=== PATIENT | male | born 1960 | race Caucasian/White ===

== ENCOUNTER 2016-07-19 13:49 | Observation (INO) | payer OTHER ==
[~2016-07-19] VITALS: Ht 162.6 cm; Wt 75.0 kg
[2016-07-19 14:34] VITALS: BP 115/60; PULSE 95; RESP 18; TEMP 98.4; O2SAT 98
[2016-07-19 14:39] VITALS: BP 114/63; PULSE 98; RESP 18; O2SAT 98
[2016-07-19 14:49] VITALS: BP 112/60; PULSE 91; RESP 18
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
[2016-07-19 15:11] LABS: AUTOMATED NEUTROPHIL # 3.2 TH/MM3 (1.8-7.7); BASOPHIL % 0.9 % (0.0-2.0); EOSINOPHIL # 0.2 TH/MM3 (0-0.4); EOSINOPHIL % 3.8 % (0.0-4.0); HEMATOCRIT 33.8 % (39.0-51.0); HEMO FLAGS DIFF FINAL; LYMPH % 23.7 % (9.0-44.0); LYMPHOCYTE # 1.3 TH/MM3 (1.0-4.8); MEAN CORPUSCULAR HEMOGLOBIN 31.3 PG (27.0-34.0); MONO % 11.5 % (0.0-8.0); NEUT % 60.1 % (16.0-70.0); PLATELET COUNT 177 TH/MM3 (150-450); RED BLOOD COUNT 3.68 MIL/MM3 (4.50-5.90); RED CELL DISTRIBUTION WIDTH 16.3 % (11.6-17.2); WHITE BLOOD COUNT 5.3 TH/MM3 (4.0-11.0)
[2016-07-19 15:20] LABS: APTT (PATIENT) 27.6 SEC (24.3-30.1); INTERNATIONAL NORMALIZED RATIO 1.1 RATIO; PROTHROMBIN TIME - PATIENT 11.7 SEC (9.8-11.6)
[2016-07-19 15:30] VITALS: BP 130/76; PULSE 80; RESP 16; O2SAT 98
--- NOTE | 2016-07-19 15:30 | RADRPT ---
EXAM DATE/TIME: 07/19/2016 14:42 [facility] COMPARISON: No previous studies available for comparison. INDICATIONS : Chest pain. MEDICAL HISTORY : Myocardial infarction. SURGICAL HISTORY : heart stents X5 ENCOUNTER: Initial ACUITY: 2 days PAIN SCORE: 3/10 LOCATION: Bilateral chest FINDINGS: A single view of the chest demonstrates the lungs to be symmetrically aerated without evidence of mas s, infiltrate or effusion. The cardiomediastinal contours are unremarkable. Osseous structures are intact. CONCLUSION: The lungs are clear. Joshua Wilder MD on July 19, 2016 at 15:28 Board Certified Radiologist. This report was verified electronically.
[2016-07-19 15:34] LABS: ANION GAP 9 MEQ/L (5-15); BICARBONATE 26.7 MEQ/L (21.0-32.0); BLOOD UREA NITROGEN 9 MG/DL (7-18); CHLORIDE 107 MEQ/L (98-107); GLOMERULAR FILTRATION RATE 103 ML/MIN (>89); MAGNESIUM 2.1 MG/DL (1.5-2.5); POTASSIUM 3.4 MEQ/L (3.5-5.1); SODIUM (NA) 143 MEQ/L (136-145)
[2016-07-19 15:39] LABS: CREATINE KINASE 165 U/L (39-308)
[2016-07-19 15:51] LABS: CKMB 1.3 NG/ML (0.5-3.6)
[2016-07-19 16:30] VITALS: BP 150/84; PULSE 76; RESP 16; O2SAT 97
[2016-07-19] MEDS ORDERED: cloNIDine HCL 0.1 MG TAB PO PRN (16:45)
[2016-07-19] MEDS ORDERED: ONDANSETRON HCL 4 MG/2 ML VIAL IV PRN (16:45)
[2016-07-19] MEDS ORDERED: ACETAMINOPHEN 500 MG CPLT PO PRN (16:45)
[2016-07-19] MEDS ORDERED: RESP: ALBUTEROL 2.5 MG/IPRATROPIUM 0.5 MG NEB (PRN) INH (16:45)
[2016-07-19] MEDS ORDERED: SODIUM CHLORIDE 0.9% FLUSH 5 ML FLUSH IVF PRN (16:45)
[2016-07-19] MEDS ORDERED: ACETAMINOPHEN/HYDROcodone 325 MG/7.5 MG TAB PO PRN (16:45)
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
[2016-07-19] MEDS ORDERED: PLAV75TA29 PO (16:56)
[2016-07-19] MEDS ORDERED: ATOR1TAB18 PO (16:56)
[2016-07-19] MEDS ORDERED: METO50TA PO (16:56)
[2016-07-19] MEDS: PANTOPRAZOLE SOD 40 MG DELAYED RELEASE TAB PO SCH (17:03)
[2016-07-19] MEDS: CLOPIDOGREL 75 MG TAB PO SCH (17:03)
[2016-07-19 18:42] LABS: CREATINE KINASE 157 U/L (39-308)
[2016-07-19 18:54] LABS: CKMB 1.1 NG/ML (0.5-3.6)
[2016-07-19 19:24] VITALS: BP 137/82; PULSE 89; RESP 18; TEMP 98.6; O2SAT 97
[2016-07-19] MEDS: SODIUM CHLORIDE 0.9% FLUSH 10 ML FLUSH IV FLUSH SCH (21:00)
[2016-07-19] MEDS ORDERED: ATORVASTATIN 80 MG TAB PO SCH (21:00)
[2016-07-19 21:38] LABS: CREATINE KINASE 134 U/L (39-308)
[2016-07-19 21:51] LABS: CKMB 0.9 NG/ML (0.5-3.6)
[2016-07-19] MEDS: METOPROLOL TARTRATE 50 MG TAB PO SCH (21:51)
[2016-07-20 00:24] VITALS: BP 140/79; PULSE 66; RESP 18; TEMP 98; O2SAT 98
[2016-07-20 03:32] VITALS: BP_SYST 136; BP_SYST 144; BP_DIAS 70; BP_DIAS 85; PULSE 60; PULSE 74; RESP 18; TEMP 97.8; O2SAT 95; O2SAT 98
[2016-07-20] MEDS: METOPROLOL TARTRATE 50 MG TAB PO SCH ×2 (07:30→10:52)
[2016-07-20 08:04] VITALS: BP 164/84; PULSE 72; RESP 20; TEMP 96.3; O2SAT 98
[2016-07-20] MEDS ORDERED: REGADENOSON INJ 0.4 MG/5 ML SYR ONE (08:58)
[2016-07-20] MEDS ORDERED: ASPIRIN 325 MG TAB PO SCH (09:00)
[2016-07-20] MEDS: SODIUM CHLORIDE 0.9% FLUSH 10 ML FLUSH IV FLUSH SCH (09:00)
[2016-07-20 09:03] VITALS: PULSE 72
--- NOTE | 2016-07-20 10:20 | RADRPT ---
EXAM DATE/TIME: 07/20/2016 08:36 [facility] COMPARISON: No previous studies available for comparison. INDICATIONS : Chest pain for 2 days. Angina. Coronary artery disease. DOSE: 26.7 mCi Tc99m Myoview at stress. 8.2 mCi Tc99m Myoview at rest. 0.4 mg Lexiscan STRESS SYMPTOMS: Shortness of breath. EJECTION FRACTION: 61% MEDICAL HISTORY : Hypertension. SURGICAL HISTORY : Coronary artery stent. ENCOUNTER: Initial ACUITY: 2 days PAIN SCALE: 3/10 LOCATION: Bilateral chest TECHNIQUE: The patient underwent pharmacologic stress with infusion of prescribed dose. Continuous ECG tracing was monitored during stress. Gated SPECT imaging was performed after stress and conventional SPECT i maging was performed at rest. The examination was performed on a SPECT/CT scanner, both attenuation and non-corrected datasets were reviewed. FINDINGS: DISTRIBUTION: The maximum perfused segment at stress is in the anteroseptal wall. PERFUSION STUDY: The pattern of perfusion at stress demonstrates reduction in perfusion to the posterior basal and inf erior wall with better perfusion during rest with some involvement of the lateral wall as well. GATED STUDY: There is intact wall motion and thickening without hypokinetic or dyskinetic segments. CONCLUSION: There is ischemia in the RCA territory and lateral wall. RISK CATEGORY: Intermediate (1-3% Annual Mortality Rate) Devin Mays MD on July 20, 2016 at 10:15 Board Certified Radiologist. This report was verified electronically.
--- NOTE | 2016-07-20 10:36 | PD.CARD.PN ---
Subjective Subjective Remarks Denies chest pain this time. Objective Vital Signs / I&O Vital Signs Date Time Temp Pulse Resp B/P Pulse Ox O2 Delivery O2 Flow Rate FiO2 07/20/16 09:03 72 07/20/16 08:04 96.3 72 20 164/84 98 07/20/16 03:32 97.8 74 18 144/85 98 07/20/16 03:14 21 07/20/16 00:24 98.0 66 18 140/79 98 07/19/16 19:24 98.6 89 18 137/82 97 07/19/16 16:30 76 16 150/84 97 Room Air 07/19/16 15:30 80 16 130/76 98 Room Air 07/19/16 14:49 91 18 112/60 07/19/16 14:39 98 Nasal Cannula 07/19/16 14:39 98 18 114/63 Nasal Cannula 07/19/16 14:39 Nasal Cannula 07/19/16 14:39 95 18 Nasal Cannula 07/19/16 14:34 98.4 95 18 115/60 98 I/O 07/19/16 07/19/16 07/19/16 07/20/16 07/20/16 07/20/16 07:00 15:00 23:00 07:00 15:00 23:00 Intake Total 50 ml Output Total 350 ml Balance -300 ml Intake Oral 50 ml Output Urine Total 350 ml Physical Exam Gen.: Patient no apparent distress. Speech is clear. Lungs: Clear to auscultate. Cardiac: Regular rate and rhythm without murmur gallop or rub. GI abdomen nontender. Bowel sounds normal. Laboratory Laboratory Tests Test 07/19/16 07/19/16 07/19/16 14:46 17:40 20:45 White Blood Count 5.3 TH/MM3 Red Blood Count 3.68 MIL/MM3 Hemoglobin 11.5 GM/DL Hematocrit 33.8 % Mean Corpuscular Volume 92.0 FL Mean Corpuscular Hemoglobin 31.3 PG Mean Corpuscular Hemoglobin 34.0 % Concent Red Cell Distribution Width 16.3 % Platelet Count 177 TH/MM3 Mean Platelet Volume 9.0 FL Neutrophils (%) (Auto) 60.1 % Lymphocytes (%) (Auto) 23.7 % Monocytes (%) (Auto) 11.5 % Eosinophils (%) (Auto) 3.8 % Basophils (%) (Auto) 0.9 % Neutrophils # (Auto) 3.2 TH/MM3 Lymphocytes # (Auto) 1.3 TH/MM3 Monocytes # (Auto) 0.6 TH/MM3 Eosinophils # (Auto) 0.2 TH/MM3 Basophils # (Auto) 0.0 TH/MM3 CBC Comment DIFF FINAL Differential Comment Prothrombin Time 11.7 SEC Prothromb Time International 1.1 RATIO Ratio Activated Partial 27.6 SEC Thromboplast Time Sodium Level 143 MEQ/L Potassium Level 3.4 MEQ/L Chloride Level 107 MEQ/L Carbon Dioxide Level 26.7 MEQ/L Anion Gap 9 MEQ/L Blood Urea Nitrogen 9 MG/DL Creatinine 0.78 MG/DL Estimat Glomerular Filtration 103 ML/MIN Rate Random Glucose 145 MG/DL Calcium Level 8.7 MG/DL Magnesium Level 2.1 MG/DL Total Creatine Kinase 165 U/L 157 U/L 134 U/L Creatine Kinase MB 1.3 NG/ML 1.1 NG/ML 0.9 NG/ML Troponin I LESS THAN 0.02 LESS THAN 0.02 LESS THAN 0.02 NG/ML NG/ML NG/ML Imaging Last 24 hours Impressions Myocardial Perfusion Scan Nuc Med 07/20/16 0000 Signed Impressions: Service Date/Time: July 08:36 - CONCLUSION: There is ischemia in the RCA territory and lateral wall. RISK CATEGORY: Intermediate (1-3%% Annual Mortality Rate) Devin Mays MD Chest X-Ray 07/19/16 1437 Signed Impressions: Service Date/Time: Tuesday, July 19, 2016 14:42 - CONCLUSION: The lungs are clear. Joshua Wilder MD Assessment and Plan Assessment and Plan * Chest pain: Denies chest pain at this time. Patient had an ischemic stress test today. He will need admission to hospitalist with consultation to cardiology for likely heart catheterization. * History of CAD: Had abnormal stress test today and will likely need cardiac catheterization. We'll also apply Nitrol ointment. * Hypertension: Continue current medication. * Hyperlipidemia: Continue current medication. * Tobacco abuse: Patient has been counseled on the importance of smoking cessation. Patient is stable at this time. He is agreeable to this plan. Jeo Miranda Jul 20, 2016 10:36
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
[2016-07-20] MEDS: PANTOPRAZOLE SOD 40 MG DELAYED RELEASE TAB PO SCH (10:52)
[2016-07-20] MEDS: CLOPIDOGREL 75 MG TAB PO SCH (10:52)
[2016-07-20] MEDS ORDERED: NITROGLYCERIN 2% OINT 1 GM PACKET TOPICAL SCH (11:00)
[2016-07-20] MEDS ORDERED: SODIUM CHLOR 0.9% 1000 ML INJ 1,000 ML IV SCH (11:00)
--- NOTE | 2016-07-20 11:18 | TR ---
Date Performed: 07/20/2016 Time Performed: 09:05:46 DOCTOR: Felix Paula DRUG LIST: CLINICAL HISTORY: ANGINA REASON FOR TEST: Angina REASON FOR ENDING: OBSERVATION: CONCLUSION: Lexiscan stress test was performed under standard four minute protocol. Radion[place] e was injected one minute prior to ending the test. No electrocardiographic abormalities were present to suggest ischemia. Nuclear imaging and interpretation are pending. COMMENTS:
--- NOTE | 2016-07-20 11:25 | EKG ---
Date Performed: 07/19/2016 Time Performed: 23:45:32 PTAGE: 55 years EKG: Sinus rhythm INDETERMINATE AXIS POSSIBLE RIGHT VENTRICULAR CONDUCTION DELAY INFERIOR MYOCARDIAL INFARCTION ABNORM AL ECG INTERPRETATION BASED ON A DEFAULT AGE OF 40 YEARS Since PREVIOUS TRACING , no significant change noted DOCTOR: Felix Paula Interpretating Date/Time 07/20/2016 11:24:22
--- NOTE | 2016-07-20 11:28 | EKG ---
Date Performed: 07/19/2016 Time Performed: 21:10:54 PTAGE: 55 years EKG: Sinus rhythm MARKED LEFT AXIS DEVIATION INCOMPLETE RIGHT BUNDLE BRANCH BLOCK ABNORMAL ECG Inferior myocardial inf arction PREVIOUS TRACING : 07/19/2016 18.34 Since previous tracing, no significant change noted DOCTOR: Felix Paula Interpretating Date/Time 07/20/2016 11:26:59
[2016-07-20 11:35] VITALS: BP 158/83; PULSE 76; RESP 20; TEMP 95.6; O2SAT 100
--- NOTE | 2016-07-20 12:23 | EKG ---
Date Performed: 07/19/2016 Time Performed: 18:34:35 PTAGE: 55 years EKG: Sinus rhythm PATTERN CONSISTENT WITH PULMONARY DISEASE POSSIBLE RIGHT VENTRICULAR CONDUCTION DELAY INFERIOR MYOCA RDIAL INFARCTION ABNORMAL ECG PREVIOUS TRACING : 07/19/2016 14.34 Since previous tracing, no significant change noted DOCTOR: Felix Paula Interpretating Date/Time 07/20/2016 12:21:27
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
--- NOTE | 2016-07-20 13:10 | EKG ---
Date Performed: 07/19/2016 Time Performed: 14:34:58 PTAGE: 55 years EKG: Sinus rhythm LOW QRS VOLTAGE IN PRECORDIAL LEADS PATTERN CONSISTENT WITH PULMONARY DISEASE POSSIBLE RIGHT VENTRIC ULAR CONDUCTION DELAY INFERIOR MYOCARDIAL INFARCTION ABNORMAL ECG NO PREVIOUS TRACING DOCTOR: Felix Paula Interpretating Date/Time 07/20/2016 13:09:02
[2016-07-20] MEDS ORDERED: HEPARIN-NS/PF INJ 500 ML ONE (13:46)
[2016-07-20] MEDS ORDERED: MIDAZOLAM HCL 2 MG/2 ML VIAL ONE (13:49)
--- NOTE | 2016-07-20 15:29 | MA ---
cc: NAY OWENS DATE: 07/20/2016. PROCEDURE PERFORMED: 1. Left heart catheterization. 2. Selective right and left coronary angiography. 3. Left ventriculogram. 4. Right common femoral artery angiography, selective. INDICATIONS FOR THE PROCEDURE: Angina. Positive stress test. History of known coronary artery disease. DESCRIPTION OF THE PROCEDURE: Consent signed. The patient was brought into the cardiac computer lab assistant in a fasting state. The right groin was prepped and draped in a sterile fashion using 1% lidocaine for local anesthesia and micropuncture kit. A 5-[place] sheath was inserted into the right common femoral artery. A right common femoral artery angiography was performed to confirm position of the sheath. Then selective right and left coronary angiography was performed with a JL-4 and a JR-4 diagnostic catheter. Angiography was taken in multiple views. Then the JR-4 diagnostic catheter was introduced over a wire to the left ventricle followed by pressure recordings, left ventriculogram and pullback. The patient tolerated the procedure well without complications. Estimated blood loss less than 30 mL. Total contrast used 60 mL. The right groin access site was closed with a Vascade closure device. RESULTS: LEFT VENTRICLE: The left ventricular pressure was 117/12 with an LVEDP of 11. The aortic pressure was 124/81 with a mean of 100. The left ventriculogram revealed a symmetric agus ventricle with an estimated ejection fraction of 60%. ANGIOGRAPHY: 1. Left main patent with nonobstructive coronary artery disease. 2. The left anterior descending is a transapical vessel that has minimal irregularities throughout. It has a proximal 20% lesion. The first and second diagonals are patent with nonobstructive coronary artery disease. 3. The left circumflex artery has nonobstructive coronary artery disease. He has a prominent OM1 which is at least a 2.5 mm vessel proximally. In the obtuse marginal branch, there is a 40-50% lesion NEO III flow. The rest of the circumflex artery is patent with nonobstructive coronary artery disease. 4. The right coronary artery is a dominant vessel. It has stents from the proximal segment to its distal segment. These stents are open and there is no in-stent re-stenosis. The posterior descending artery is patient with NEO III flow and a nonobstructive coronary artery disease. CONCLUSION: 1. Patent stents in the right coronary artery. 2. Normal left ventricular systolic function RECOMMENDATIONS: 1. Continue aggressive medical therapy for secondary prevention of coronary artery disease. 2. The patient should continue on aspirin, Plavix and statins, beta blockers and ROSS inhibitors. 3. He should follow with cardiology as an outpatient. 4. Smoking cessation is strongly advised. MD ZHANE Pretty/JENNIFER /2:18 PM /3:23 PM KAI
[2016-07-20] MEDS ORDERED: IOHEXOL 350 MG/ML 100 ML BTL (for Cath Lab) OTHER ONE (16:43)
== END 2016-07-20 17:40 | disposition home or self-care (01) ==
LOC: NEPE 13:49 → NEDA 16:15 → NEPHCDU 18:32 → HCIS 07-20 13:00
PROVIDERS: ADMIT Internal Medicine; ATTEND Internal Medicine
DX: R07.9 Chest pain, unspecified (principal); R06.02 Shortness of breath; Z79.01 Long term (current) use of anticoagulants; F17.210 Nicotine dependence, cigarettes, uncomplicated; I25.119 Atherosclerotic heart disease of native coronary artery with unspecified angina pectoris; R11.2 Nausea with vomiting, unspecified; I10 Essential (primary) hypertension; E78.5 Hyperlipidemia, unspecified; I45.9 Conduction disorder, unspecified; Z95.5 Presence of coronary angioplasty implant and graft; Z79.899 Other long term (current) drug therapy
CPT/HCPCS: 71010; 78452; 80048; 82550; 82552; 83735; 84484; 85025; 85610; 85730; 93005; 93017; 93458; 99285; A9502; C1760; C1769; C1893; G0269; J1644; J2250; J2785; J3010; J7030; G0378; Q9967

== ENCOUNTER 2016-07-21 19:15 | Emergency (ER) | payer OTHER ==
[~2016-07-21 19:15] MED LIST: ATOR1TAB18 PO; METO50TA PO; PLAV75TA29 PO
[2016-07-21 20:18] VITALS: BP 168/108; PULSE 118; RESP 18; TEMP 97.8; O2SAT 96
[2016-07-21 20:36] VITALS: BP 127/68; PULSE 69; RESP 14; TEMP 98; O2SAT 97
[2016-07-21 21:05] LABS: AUTOMATED NEUTROPHIL # 3.6 TH/MM3 (1.8-7.7); BASOPHIL % 0.6 % (0.0-2.0); EOSINOPHIL # 0.4 TH/MM3 (0-0.4); HEMATOCRIT 33.8 % (39.0-51.0); HEMO FLAGS DIFF FINAL; LYMPH % 30.4 % (9.0-44.0); MEAN CELL VOLUME 92.5 FL (80.0-100.0); MEAN CORPUSCULAR HEMOGLOBIN 31.8 PG (27.0-34.0); MEAN CORPUSCULAR HGB CONC 34.3 % (32.0-36.0); MONO % 7.9 % (0.0-8.0); NEUT % 55.1 % (16.0-70.0); PLATELET COUNT 179 TH/MM3 (150-450); RED BLOOD COUNT 3.65 MIL/MM3 (4.50-5.90); RED CELL DISTRIBUTION WIDTH 16.2 % (11.6-17.2); WHITE BLOOD COUNT 6.5 TH/MM3 (4.0-11.0)
[2016-07-21 21:14] LABS: ANION GAP 10 MEQ/L (5-15); AST (GOT) 39 U/L (15-37); BICARBONATE 24.1 MEQ/L (21.0-32.0); CHLORIDE 110 MEQ/L (98-107); GLOMERULAR FILTRATION RATE 109 ML/MIN (>89); POTASSIUM 3.9 MEQ/L (3.5-5.1); SODIUM (NA) 144 MEQ/L (136-145)
[2016-07-21 21:16] LABS: BLOOD UREA NITROGEN 10 MG/DL (7-18)
[2016-07-21 21:17] LABS: AMPHETAMINE, URINE NEG (NEG); BARBITURATES, URINE NEG (NEG); COCAINE, URINE NEG (NEG)
[2016-07-21 21:17] LABS: ALKALINE PHOSPHATASE 90 U/L (45-117); ALT (GPT) 46 U/L (12-78); TOTAL BILIRUBIN ADULT 0.2 MG/DL (0.2-1.0)
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
[2016-07-22] VITALS: BP 117/70; PULSE 78; RESP 16; O2SAT 97
[2016-07-22 08:50] VITALS: BP 165/97; PULSE 71; RESP 16; O2SAT 98
[2016-07-22 14:15] VITALS: BP 171/82; PULSE 65; RESP 20; O2SAT 100
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
== END 2016-07-22 19:57 | disposition home or self-care (01) ==
LOC: NEPE 19:15 → NEPD 07-22 19:57
DX: R45.851 Suicidal ideations (principal); F10.129 Alcohol abuse with intoxication, unspecified; Z59.0 Homelessness; Z79.82 Long term (current) use of aspirin; Z72.0 Tobacco use
CPT/HCPCS: 80053; 80307; 85025; 99284

== ENCOUNTER 2016-09-09 17:15 | Inpatient (IN) | payer SELFPAY ==
[~2016-09-09] VITALS: Ht 162.6 cm; Wt 70.0 kg
[2016-09-09 19:50] VITALS: BP 153/71; PULSE 77; RESP 18; TEMP 97.4; O2SAT 98
[2016-09-09] MEDS ORDERED: ASPI-110 PO (20:42)
[2016-09-09] MEDS ORDERED: TEGR200T PO (20:42)
[2016-09-09] MEDS ORDERED: LEXA20TA PO (20:42)
[2016-09-09] MEDS ORDERED: ISOS30TA3 PO (20:42)
[2016-09-09] MEDS ORDERED: LISI-515 PO (20:42)
[2016-09-09] MEDS ORDERED: RISP3TAB2 PO (20:42)
[2016-09-09] MEDS ORDERED: hydrOXYzine HCL 50 MG TAB PO PRN (21:00)
[2016-09-09] MEDS ORDERED: diphenhydrAMINE HCL 50 MG CAP - HS PRN PO (21:00)
[2016-09-09] MEDS ORDERED: diphenhydrAMINE HCL 50 MG/ML VIAL - HS PRN IM (21:00)
[2016-09-09] MEDS ORDERED: MAGNESIUM HYDROXIDE SUSP 30 ML CUP PO PRN (21:00)
[2016-09-09] MEDS ORDERED: ACETAMINOPHEN 325 MG TAB PO PRN (21:00)
[2016-09-09] MEDS: REMOVE OLD NICOTINE PATCH T-DERMAL SCH (21:00)
[2016-09-09] MEDS ORDERED: ALUMINUM/MAGNESIUM/SIMETH 30 ML CUP PO PRN (21:00)
[2016-09-10] MEDS ORDERED: FOLI1TAB6 PO (02:27)
[2016-09-10 06:00] VITALS: BP 118/75; PULSE 75; RESP 18; TEMP 97.5; O2SAT 98
[2016-09-10] MEDS ORDERED: NICOTINE 21 MG/24 HR PATCH T-DERMAL SCH (09:00)
[2016-09-10 09:26] LABS: ANION GAP 10 MEQ/L (5-15); BICARBONATE 26.9 MEQ/L (21.0-32.0); BLOOD UREA NITROGEN 14 MG/DL (7-18); CHLORIDE 107 MEQ/L (98-107); GLOMERULAR FILTRATION RATE 92 ML/MIN (>89); POTASSIUM 3.8 MEQ/L (3.5-5.1); SODIUM (NA) 144 MEQ/L (136-145)
[2016-09-10 09:30] LABS: HDL CHOLESTEROL 38.3 MG/DL (40.0-60.0); LDL CHOLESTEROL 130 MG/DL (0-99)
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
[2016-09-10] MEDS ORDERED: ACETAMINOPHEN 325 MG TAB PO PRN (16:30)
[2016-09-10] MEDS ORDERED: ALUMINUM/MAGNESIUM/SIMETH 30 ML CUP PO PRN (16:30)
[2016-09-10] MEDS ORDERED: MAGNESIUM HYDROXIDE SUSP 30 ML CUP PO PRN (16:30)
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
[2016-09-10] MEDS: BENZTROPINE MESYLATE 1 MG TAB PO SCH (16:48)
[2016-09-10] MEDS: CITALOPRAM HYDROBROMIDE 20 MG TAB PO SCH (16:48)
[2016-09-10 20:07] VITALS: BP 149/82; PULSE 75; RESP 18; TEMP 98; O2SAT 98
[2016-09-10] MEDS: risperiDONE 1 MG TAB PO SCH (21:00)
[2016-09-10] MEDS: METOPROLOL TARTRATE 50 MG TAB PO SCH (21:00)
[2016-09-10] MEDS: REMOVE OLD NICOTINE PATCH T-DERMAL SCH (21:00)
[2016-09-10] MEDS ORDERED: ATORVASTATIN 80 MG TAB PO SCH (21:00)
[2016-09-11 05:49] VITALS: BP 109/73; PULSE 71; RESP 17; TEMP 97.7; O2SAT 98
[2016-09-11] MEDS ORDERED: ISOSORBIDE MONONITRATE 30 MG TAB PO SCH (08:00)
[2016-09-11] MEDS: CITALOPRAM HYDROBROMIDE 20 MG TAB PO SCH (08:32)
[2016-09-11] MEDS: BENZTROPINE MESYLATE 1 MG TAB PO SCH (08:32)
[2016-09-11] MEDS: METOPROLOL TARTRATE 50 MG TAB PO SCH (08:33)
[2016-09-11] MEDS: risperiDONE 1 MG TAB PO SCH (08:34)
[2016-09-11] MEDS ORDERED: LISINOPRIL 20 MG TAB PO SCH (09:00)
[2016-09-11] MEDS ORDERED: ASPIRIN EC 81 MG TABEC PO SCH (09:00)
[2016-09-11] MEDS ORDERED: CLOPIDOGREL 75 MG TAB PO SCH (09:00)
[2016-09-11] MEDS ORDERED: RISP1 PO (09:47)
[2016-09-11] MEDS ORDERED: PLAV75TA29 PO (09:47)
[2016-09-11] MEDS ORDERED: LISI-515 PO (09:47)
[2016-09-11] MEDS ORDERED: Benztropine PO (09:47)
[2016-09-11] MEDS ORDERED: ASPI-99 PO (09:47)
[2016-09-11] MEDS ORDERED: ATOR1TAB18 PO (09:47)
[2016-09-11] MEDS ORDERED: CELE20TA PO (09:47)
[2016-09-11] MEDS ORDERED: ISOS30TA3 PO (09:47)
[2016-09-11] MEDS ORDERED: METO-309 PO (09:47)
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
[2016-09-11 16:10] LABS: HEMOGLOBIN A1a 0.9 %; HEMOGLOBIN A1b 1.3 %; HEMOGLOBIN Ao 87.1 %; HEMOGLOBIN P3 3.2 %
== END 2016-09-11 14:05 | disposition home or self-care (01) | DRG 885 ==
LOC: H270 17:15
PROVIDERS: ADMIT Psychiatry & Neurology Psychiatry; ATTEND Psychiatry & Neurology Psychiatry
DX: F31.30 Bipolar disorder, current episode depressed, mild or moderate severity, unspecified (principal); R45.851 Suicidal ideations; I10 Essential (primary) hypertension; I25.10 Atherosclerotic heart disease of native coronary artery without angina pectoris; F17.210 Nicotine dependence, cigarettes, uncomplicated; E78.5 Hyperlipidemia, unspecified; Z59.0 Homelessness; Z79.899 Other long term (current) drug therapy; Z79.82 Long term (current) use of aspirin; Z95.5 Presence of coronary angioplasty implant and graft
CPT/HCPCS: 80048; 80061; 83036

== ENCOUNTER 2016-09-24 01:32 | Observation (INO) | payer SELFPAY ==
[~2016-09-24] VITALS: Ht 162.6 cm; Wt 80.0 kg
[2016-09-24] VITALS (11 sets, daily range): BP systolic 74–163; BP diastolic 39–80; PULSE 65–100; RESP 16–20; TEMP 97.8–98.7; O2SAT 95–99
[~2016-09-24 01:32] MED LIST changes: +ASPI-99 PO; +Benztropine PO; +CELE20TA PO; +FOLI1TAB6 PO; +ISOS30TA3 PO; +LEXA20TA PO; +LISI-515 PO; +METO-309 PO; -METO50TA PO; +RISP1 PO; +RISP3TAB2 PO; +TEGR200T PO
[2016-09-24] MEDS ORDERED: SODIUM CHLORIDE 0.9% FLUSH 10 ML FLUSH IVF PRN (02:15)
[2016-09-24] MEDS ORDERED: SODIUM CHLOR 0.9% 1000 ML INJ 1,000 ML IV ONE ×3 (02:15→03:15)
--- NOTE | 2016-09-24 02:15 | PD ---
HPI Chief Complaint: Chest Pain Time Seen by Provider: 01:48 Travel History International Travel<30 days: No Contact w/Intl Traveler<30days: No Traveled to known affect area: No History of Present Illness HPI The patient is a 55-year-old male who presents emergency department via EMS for not feeling well and chest pain. The patient states he was just discharged yesterday from [facility] in [place], [place]. The patient states he had a stress test which was unremarkable and was discharged home. However, the patient is complaining of some mild substernal chest pain, headache, diffuse body aches, and generalized weakness. The patient does have a previous history of CAD with previous stents, does not currently have a primary physician and/or underlay stitcher. He denies any acute shortness of breath, does note mild nausea without any vomiting, diarrhea, or abdominal pain. He does complain of diffuse myalgias with his generalized weakness. He is unsure if he has had a fever. The patient was noted to be hypotensive by EMS prior to arrival, he received 1 L of IV fluids without any improvement of his symptoms. He also complains of a right sided headache which is throbbing in nature, denies any trauma to the head. PFSH Past Medical History Hx Anticoagulant Therapy: Yes (PLAVIX, ASA 81 MG, LAST DOSE X 3 DAYS) Depression: Yes Cancer: No Cardiovascular Problems: Yes Chemotherapy: No Cerebrovascular Accident: No Diabetes: No Diminished Hearing: No Genitourinary: No Headaches: No Musculoskeletal: No Neurologic: No Psychiatric: Yes Reproductive: No Respiratory: No Seizures: No Past Surgical History Coronary Stent: Yes (5 STENTS) Social History Alcohol Use: No Tobacco Use: Yes Substance Use: No Allergies-Medications (Allergen,Severity, Reaction): Coded Allergies: No Known Allergies (Unverified , 07/19/16) VERIFIED WITH PT Reported Meds & Prescriptions Reported Meds & Active Scripts Active Lopressor (Metoprolol Tartrate) 50 Mg Tab 50 Mg PO BID Lisinopril 20 Mg Tab 20 Mg PO DAILY Isosorbide Mononitrate ER (Isosorbide Mononitrate) 30 Mg Angela 30 Mg PO DAILYAC Plavix (Clopidogrel Bisulfate) 75 Mg Tab 75 Mg PO DAILY [Benztropine] 1 MG Tab 1 Mg PO DAILY Atorvastatin (Atorvastatin Calcium) 80 Mg Tab 80 Mg PO HS Adult Aspirin EC Low Strength (Aspirin) 81 Mg Tabec 81 Mg PO DAILY Reported Folic Acid 1 Mg Tablet PO HS Tegretol (Carbamazepine) 200 Mg Tab 200 Mg PO BID Review of Systems Except as stated in HPI: all other systems reviewed are Neg General / Constitutional: No: Fever HENT: Positive: Headaches, Lightheadedness Cardiovascular: Positive: Chest Pain or Discomfort Respiratory: No: Shortness of Breath Gastrointestinal: Positive: Nausea, No: Vomiting, Abdominal Pain Genitourinary: No: Decreased Urinary Output Musculoskeletal: Positive: Myalgias, Weakness Neurologic: Positive: Weakness Psychiatric: Positive: Depression, No: Substance Abuse Physical Exam Narrative GENERAL: Awake, alert, nontoxic-appearing 55-year-old male appears his stated age and is in no acute respiratory distress. SKIN: Focused skin assessment warm/dry. HEAD: Atraumatic. Normocephalic. EYES: Pupils equal and round. Pupils are 4 mm bilateral and reactive. ENT: No nasal bleeding or discharge. Mucous membranes pink and moist. NECK: Trachea midline. No JVD. CARDIOVASCULAR: Regular rate and rhythm. No murmur appreciated. RESPIRATORY: No accessory muscle use. Clear to auscultation. Breath sounds equal bilaterally. GASTROINTESTINAL: Abdomen soft, non-tender, nondistended. No rebound tenderness. MUSCULOSKELETAL: No obvious deformities. No clubbing. No cyanosis. No edema. Positive femoral pulses bilateral. NEUROLOGICAL: Awake and alert. No obvious cranial nerve deficits. Motor grossly within normal limits. Normal speech. PSYCHIATRIC: Odd affect. Data Data Last Documented VS Vital Signs Date Time Temp Pulse Resp B/P Pulse Ox O2 Delivery O2 Flow Rate FiO2 09/24/16 04:10 77 122/59 09/24/16 03:30 16 97 Room Air 09/24/16 01:32 98.7 Orders Electrocardiogram (09/24/16 02:02) Ckmb (Isoenzyme) Profile (09/24/16 02:02) Complete Blood Count With Diff (09/24/16 02:02) Comprehensive Metabolic Panel (09/24/16 02:02) Magnesium (Mg) (09/24/16 02:02) Prothrombin Time / Inr (Pt) (09/24/16 02:02) Act Partial Throm Time (Ptt) (09/24/16 02:02) Troponin I (09/24/16 02:02) Lipase (09/24/16 02:02) Chest, Single Ap (09/24/16 02:02) Ecg Monitoring (09/24/16 02:02) Bilateral Bp Monitoring (09/24/16 02:02) Iv Access Insert/Monitor (09/24/16 02:02) Oximetry (09/24/16 02:02) Oxygen Administration (09/24/16 02:02) Sodium Chloride 0.9% Flush (Ns Flush) (09/24/16 02:15) Sodium Chlor 0.9% 1000 Ml Inj (Ns 1000 M (09/24/16 02:15) Lactic Acid (09/24/16 02:02) Blood Culture (09/24/16 02:02) Alcohol (Ethanol) (09/24/16 02:15) CKMB (09/24/16 02:15) CKMB% (09/24/16 02:15) Sodium Chlor 0.9% 1000 Ml Inj (Ns 1000 M (09/24/16 03:15) Sodium Chlor 0.9% 1000 Ml Inj (Ns 1000 M (09/24/16 03:15) Drug Screen, Random Urine (09/24/16 03:57) Carbamazepine (Tegretol) (09/24/16 03:58) Admit Order (Ed Use Only) (09/24/16 04:10) Labs Laboratory Tests Test 09/24/16 02:15 White Blood Count 6.0 TH/MM3 Red Blood Count 3.65 MIL/MM3 Hemoglobin 11.2 GM/DL Hematocrit 33.5 % Mean Corpuscular Volume 91.8 FL Mean Corpuscular Hemoglobin 30.7 PG Mean Corpuscular Hemoglobin 33.5 % Concent Red Cell Distribution Width 15.2 % Platelet Count 149 TH/MM3 Mean Platelet Volume 9.3 FL Neutrophils (%) (Auto) 60.5 % Lymphocytes (%) (Auto) 25.3 % Monocytes (%) (Auto) 8.0 % Eosinophils (%) (Auto) 5.5 % Basophils (%) (Auto) 0.7 % Neutrophils # (Auto) 3.7 TH/MM3 Lymphocytes # (Auto) 1.5 TH/MM3 Monocytes # (Auto) 0.5 TH/MM3 Eosinophils # (Auto) 0.3 TH/MM3 Basophils # (Auto) 0.0 TH/MM3 CBC Comment DIFF FINAL Differential Comment Prothrombin Time 11.9 SEC Prothromb Time International 1.1 RATIO Ratio Activated Partial 24.3 SEC Thromboplast Time Sodium Level 138 MEQ/L Potassium Level 3.7 MEQ/L Chloride Level 103 MEQ/L Carbon Dioxide Level 23.7 MEQ/L Anion Gap 11 MEQ/L Blood Urea Nitrogen 9 MG/DL Creatinine 0.91 MG/DL Estimat Glomerular Filtration 86 ML/MIN Rate Random Glucose 155 MG/DL Lactic Acid Level 2.7 mmol/L Calcium Level 8.2 MG/DL Magnesium Level 2.3 MG/DL Total Bilirubin 0.4 MG/DL Aspartate Amino Transf 32 U/L (AST/SGOT) Alanine Aminotransferase 25 U/L (ALT/SGPT) Alkaline Phosphatase 75 U/L Total Creatine Kinase 171 U/L Creatine Kinase MB 1.1 NG/ML Troponin I LESS THAN 0.02 NG/ML Total Protein 6.6 GM/DL Albumin 3.1 GM/DL Lipase 121 U/L Ethyl Alcohol Level 191 MG/DL MDM Medical Decision Making Medical Screen Exam Complete: Yes Emergency Medical Condition: Yes Medical Record Reviewed: Yes Interpretation(s) EKG reveals normal sinus rhythm with a rate in 92. RSR prime width QRS 112 ms consistent with a right bundle branch block. [id number] noted. Differential Diagnosis Differential diagnosis includes cardiogenic shock, septic shock, sepsis, aortic dissection, AAA, inferior myocardial infarction, pneumonia, electrolyte abnormality, dehydration. Narrative Course IV was established, labs are drawn and sent, and the patient was placed on cardiac telemetry monitoring and continuous pulse oximetry monitoring. The patient received 2 L of IV fluids. Blood culture and lactic acid were sent to lab. We attempted to obtain medical records from his hospitalization several days ago at [facility]. I reviewed the EMR, the patient had a cardiac catheterization performed on July 20, [address] Nichols which revealed patent stents in the right coronary artery and normal left ventricular systolic function. The patient had a left main patent with nonobstructive coronary artery disease, LAD with proximal 20% lesion, first and second diagonals were patent with nonobstructive coronary artery disease, the left circumflex head nonobstructive coronary artery disease, he had an obtuse marginal branch with 40 -50% lesion to be 3 flow, the rest of the circumflex was patent with nonobstructive coronary artery disease. The right coronary artery was a dominant vessel with stents for the proximal segment to his distal segment which were open with no in-stent restenosis, the posterior descending artery is patent with a NEO 3 flow and a nonobstructive coronary artery disease. I reviewed the records from [facility], the patient had a myocardial perfusion scan performed on September 22, 2016 which revealed normal myocardial perfusion stress test with no evidence of ischemia. EF was 64%. The patient received IV fluids, his blood pressure improved, at one time it was 115/66, lost sleeping came back down to 94/54. Lactic acid was mildly elevated at 2.7, troponin is negative. Alcohol level was elevated at 191. This may be alcohol/drug ingestion versus early sepsis, however, patient is afebrile chest x -rays unremarkable. Therefore, patient will be 23 hour observation to the medical service for trending blood pressures and await 24 hour blood culture results. Physician Communication Physician Communication The on-call medical service was paged for admission. I discussed the patient with Dr Strauss who agrees with 23 hour observation Diagnosis Primary Impression: Chest pain Qualified Code: R07.9 - Chest pain, unspecified type Additional Impressions: Alcohol intoxication Qualified Code: F10.920 - Alcohol intoxication, uncomplicated Hypotension Qualified Code: I95.9 - Hypotension, unspecified hypotension type Admitting Information Admitting Physician Requests: Observation Condition: Stable Demond Donovan MD Sep 24, 2016 02:15
--- NOTE | 2016-09-24 02:19 | RADRPT ---
EXAM DATE/TIME: 09/24/2016 02:16 [facility] COMPARISON: CHEST SINGLE AP, July 19, 2016, 14:42. INDICATIONS : N/V/D x 2 days. MEDICAL HISTORY : None. SURGICAL HISTORY : None. ENCOUNTER: Initial ACUITY: 2 days PAIN SCORE: 6/10 LOCATION: Bilateral chest FINDINGS: A single view of the chest demonstrates the lungs to be symmetrically aerated without evidence of mas s, infiltrate or effusion. The cardiomediastinal contours are unremarkable. Osseous structures are intact. CONCLUSION: No acute disease. Adrian Diaz MD on September 24, 2016 at 2:17 Board Certified Radiologist. This report was verified electronically.
[2016-09-24 02:32] LABS: AUTOMATED NEUTROPHIL # 3.7 TH/MM3 (1.8-7.7); BASOPHIL % 0.7 % (0.0-2.0); EOSINOPHIL # 0.3 TH/MM3 (0-0.4); EOSINOPHIL % 5.5 % (0.0-4.0); HEMATOCRIT 33.5 % (39.0-51.0); HEMO FLAGS DIFF FINAL; LYMPH % 25.3 % (9.0-44.0); LYMPHOCYTE # 1.5 TH/MM3 (1.0-4.8); MEAN CELL VOLUME 91.8 FL (80.0-100.0); MEAN CORPUSCULAR HEMOGLOBIN 30.7 PG (27.0-34.0); MEAN CORPUSCULAR HGB CONC 33.5 % (32.0-36.0); NEUT % 60.5 % (16.0-70.0); PLATELET COUNT 149 TH/MM3 (150-450); RED BLOOD COUNT 3.65 MIL/MM3 (4.50-5.90); RED CELL DISTRIBUTION WIDTH 15.2 % (11.6-17.2)
[2016-09-24 02:43] LABS: APTT (PATIENT) 24.3 SEC (24.3-30.1); INTERNATIONAL NORMALIZED RATIO 1.1 RATIO; PROTHROMBIN TIME - PATIENT 11.9 SEC (9.8-11.6)
[2016-09-24 03:01] LABS: ALKALINE PHOSPHATASE 75 U/L (45-117); ALT (GPT) 25 U/L (12-78); ANION GAP 11 MEQ/L (5-15); AST (GOT) 32 U/L (15-37); BICARBONATE 23.7 MEQ/L (21.0-32.0); BLOOD UREA NITROGEN 9 MG/DL (7-18); CHLORIDE 103 MEQ/L (98-107); CREATINE KINASE 171 U/L (39-308); GLOMERULAR FILTRATION RATE 86 ML/MIN (>89); MAGNESIUM 2.3 MG/DL (1.5-2.5); POTASSIUM 3.7 MEQ/L (3.5-5.1); SODIUM (NA) 138 MEQ/L (136-145); TOTAL BILIRUBIN ADULT 0.4 MG/DL (0.2-1.0)
[2016-09-24 03:16] LABS: CKMB 1.1 NG/ML (0.5-3.6)
[2016-09-24] MEDS ORDERED: SODIUM CHLORIDE 0.9% FLUSH 10 ML FLUSH IV FLUSH PRN (04:15)
[2016-09-24] MEDS ORDERED: SENNOSIDES 8.6 MG TAB PO PRN (04:15)
[2016-09-24] MEDS ORDERED: BISACODYL 10 MG SUPP RECTAL PRN (04:15)
[2016-09-24] MEDS ORDERED: MAGNESIUM HYDROXIDE SUSP 30 ML CUP PO PRN (04:15)
[2016-09-24] MEDS ORDERED: HALOPERIDOL LACTATE 5 MG/ML AMP IM PRN (04:15)
[2016-09-24] MEDS ORDERED: LORazepam 1 MG TAB PO PRN (04:15)
[2016-09-24] MEDS ORDERED: ONDANSETRON HCL 4 MG/2 ML VIAL IVP PRN (04:15)
[2016-09-24] MEDS ORDERED: LORazepam 2 MG TAB PO PRN (04:15)
[2016-09-24] MEDS ORDERED: ACETAMINOPHEN 325 MG TAB PO PRN (04:15)
[2016-09-24] MEDS ORDERED: FLUMAZENIL 0.5 MG/5 ML VIAL IV PUSH PRN (04:15)
[2016-09-24] MEDS ORDERED: LORazepam 2 MG/ML VIAL IV PUSH PRN ×4 (04:15)
[2016-09-24] MEDS ORDERED: LACTULOSE SYRUP 20 GM/30 ML CUP PO PRN (04:15)
--- NOTE | 2016-09-24 04:40 | HHI.HP ---
[facility] Primary Care Physician No Primary Care Physician Admission Diagnosis chest pain with hypotension, lactic acidosis, alcohol intoxication Diagnoses: (1) Chest pain Diagnosis: Principal (2) Hypotension Diagnosis: Principal (3) Lactic acidosis Diagnosis: Principal (4) Dehydration Diagnosis: Principal (5) Alcohol abuse Diagnosis: Principal Travel History International Travel<30 Days: No Contact w/Intl Traveler <30 Da: No Traveled to Known Affected Are: No History of Present Illness This is a 55-year-old Homeless male with a PMH of Bipolar Disorder, HTN, Alcohol Abuse and Tobacco Abuse who was brought to the ER by EMS secondary to complaints of chest pain starting earlier this evening. States he was discharged from [facility] yesterday for similar symptoms. Upon EMS arrival, patient noted to be hypotensive with BP 70's systolic, s/p IVF en route. On arrival, BP 84/47, HR 93 s/p 2L IVF in ER w/ persistent hypotension, BP 80-90's , received 3rd liter IVF now w/ improvement, BP 122/59, HR 77. CBC essentially unremarkable except for mild thrombocytopenia. Chemistry unremarkable except for GFR 86. Lactic Acid 2.7. Troponin negative. Alcohol 191. CXR with no acute findings. Records obtained from [facility], pt admitted 09/21/16 for c/o chest pain, s/p Stress Test 09/22/16 negative for ischemia, normal LV function 64 %. Per records, pt also underwent Cardiac Cath 07/20/[address] Nichols found to have patent stents to RCA and normal LV function. Review of Systems Except as stated in HPI: all other systems reviewed are Neg ROS: 14 point review of systems otherwise negative. Past Family Social History Past Medical History PMH: Bipolar Disorder, HTN, Alcohol Abuse and Tobacco Abuse Past Surgical History PAST SURGICAL HISTORY: Cardiac Stents Allergies: Coded Allergies: No Known Allergies (Unverified , 07/19/16) VERIFIED WITH PT Family History PAST FAMILY HISTORY: Reviewed. No h/o DM or CAD Social History PAST SOCIAL HISTORY: Positive for Alcohol Abuse. Positive for Tobacco Abuse. Negative for drugs. Physical Exam Vital Signs Vital Signs Date Time Temp Pulse Resp B/P Pulse Ox O2 Delivery O2 Flow Rate FiO2 09/24/16 04:10 77 122/59 09/24/16 03:30 88 16 115/66 97 Room Air 09/24/16 02:17 80 18 86/53 99 Room Air 09/24/16 01:42 93 18 84/47 99 Room Air 09/24/16 01:42 99 09/24/16 01:32 98.7 100 16 74/39 95 Room Air Physical Exam PE: GENERAL: Middle-aged male in no acute distress. HEENT: PERRLA, EOMI. No scleral icterus or conjunctival pallor. No lid lag or facial droop. CARDIOVASCULAR: Regular rate and rhythm. No obvious murmurs to auscultation. No chest tenderness to palpation. RESPIRATORY: No obvious rhonchi or wheezing. Clear to auscultation. Breath sounds equal bilaterally. GASTROINTESTINAL: Abdomen soft, non-tender, nondistended. BS normal. MUSCULOSKELETAL: Extremities without clubbing, cyanosis, or edema. No obvious deformities. NEUROLOGICAL: Awake, alert and oriented x4. No focal neurologic deficits. Moving both upper and lower extremities spontaneously. Laboratory Laboratory Tests Test 09/24/16 02:15 White Blood Count 6.0 Red Blood Count 3.65 Hemoglobin 11.2 Hematocrit 33.5 Mean Corpuscular Volume 91.8 Mean Corpuscular Hemoglobin 30.7 Mean Corpuscular Hemoglobin 33.5 Concent Red Cell Distribution Width 15.2 Platelet Count 149 Mean Platelet Volume 9.3 Neutrophils (%) (Auto) 60.5 Lymphocytes (%) (Auto) 25.3 Monocytes (%) (Auto) 8.0 Eosinophils (%) (Auto) 5.5 Basophils (%) (Auto) 0.7 Neutrophils # (Auto) 3.7 Lymphocytes # (Auto) 1.5 Monocytes # (Auto) 0.5 Eosinophils # (Auto) 0.3 Basophils # (Auto) 0.0 CBC Comment DIFF FINAL Differential Comment Prothrombin Time 11.9 Prothromb Time International 1.1 Ratio Activated Partial 24.3 Thromboplast Time Sodium Level 138 Potassium Level 3.7 Chloride Level 103 Carbon Dioxide Level 23.7 Anion Gap 11 Blood Urea Nitrogen 9 Creatinine 0.91 Estimat Glomerular Filtration 86 Rate Random Glucose 155 Lactic Acid Level 2.7 Calcium Level 8.2 Magnesium Level 2.3 Total Bilirubin 0.4 Aspartate Amino Transf 32 (AST/SGOT) Alanine Aminotransferase 25 (ALT/SGPT) Alkaline Phosphatase 75 Total Creatine Kinase 171 Creatine Kinase MB 1.1 Troponin I LESS THAN 0.02 Total Protein 6.6 Albumin 3.1 Lipase 121 Ethyl Alcohol Level 191 Date/Time Procedure Status Source Growth 09/24/16 02:15 Aerobic Blood Culture Received Blood Peripheral Pending 09/24/16 02:15 Anaerobic Blood Culture Received Blood Peripheral Pending Result Diagram: 09/24/1621409/24/16214 Assessment and Plan Problem List: (1) Chest pain ICD Code: R07.9 Status: Acute (2) Hypotension ICD Code: I95.9 Status: Acute (3) Dehydration ICD Code: E86.0 Status: Acute (4) Lactic acidosis ICD Code: E87.2 Status: Acute (5) Alcohol abuse ICD Code: F10.10 Status: Acute Assessment and Plan A/P: 1. Chest Pain: h/o CAD w/ previous stents, however recent admit to [facility] , s/p Nuclear Stress 09/22/16 negative for ischemia, normal LV function. Cardiac Cath 07/20/[address] Nichols w/ patent stents to RCA. Chest Pain unlikely cardiac. Initial trop negative, EKG w/ no acute ischemia. Check serial enzymes. Resume home ASA, Statin. Hold B-raul in light of hypotension. 2. Hypotension: BP 70's upon EMS arrival, s/p 2L IVF in ER w/ persistent hypotension, BP 80-90's, now BP 122/58 after 3L IVF. Likely combination of antihypertensives and dehydration, now resolving. Hold BP meds, monitor BP, restart meds once stabilized. 3. Lactic Acidosis: Lactate 2.7, s/p IVF in ER, will continue w/ IVF, check repeat Lactate. No evidence of infection. CXR w/ no acute findings, images reviewed by me. 4. Dehydration: GFR 86, BUN/Creatinine normal. IVF, repeat labs in am. 5. Alcohol Abuse: w/ Acute Alcohol Intoxication. Alcohol 171, CIWA, Seizure Precautions, MVT/Thiamine/Folate replacement. 6. Tobacco Abuse: Pt counselled. Ativan prn if needed. No NicoDerm to avoid vasoconstriction. 7. DVT Prophylaxis: SCD/Teds. 8. Social work for d/c planning as needed. 9. Case discussed w/ ER physician at length Problem Qualifiers (1) Chest pain: Qualified Code: R07.9 - Chest pain, unspecified type (2) Hypotension: Qualified Code: I95.9 - Hypotension, unspecified hypotension type Micheline Strauss MD Sep 24, 2016 04:40
[2016-09-24 04:44] LABS: AMPHETAMINE, URINE NEG (NEG); BARBITURATES, URINE NEG (NEG); COCAINE, URINE NEG (NEG)
[2016-09-24] MEDS: SODIUM CHLOR 0.9% 1000 ML INJ 1,000 ML IV SCH ×2 (06:31→14:15)
[2016-09-24] MEDS ORDERED: carBAMazepine 200 MG TAB PO SCH (09:00)
[2016-09-24] MEDS ORDERED: DOCUSATE SODIUM 50 MG/SENNA 8.6 MG TAB PO SCH (09:00)
[2016-09-24] MEDS ORDERED: SODIUM CHLORIDE 0.9% FLUSH 10 ML FLUSH IV FLUSH SCH (09:00)
[2016-09-24] MEDS ORDERED: CLOPIDOGREL 75 MG TAB PO SCH (09:00)
[2016-09-24] MEDS ORDERED: ASPIRIN EC 81 MG TABEC PO SCH (09:00)
[2016-09-24] MEDS ORDERED: THIAMINE HCL 100 MG TAB PO SCH (09:00)
[2016-09-24] MEDS ORDERED: MULTIVITAMINS/MINERALS THERAPEUTIC TAB PO SCH (09:00)
[2016-09-24] MEDS ORDERED: BENZTROPINE MESYLATE 1 MG TAB PO SCH (09:00)
[2016-09-24] MEDS ORDERED: FOLIC ACID 1 MG TAB PO SCH (09:00)
--- NOTE | 2016-09-24 09:04 | HHI.PR ---
Subjective Remarks Follow-up for chest pain Patient found sleeping in room. Awakened by me. He continues to complain about chest pain. He said the chest pain has been constant since yesterday. He stated that is intermittent and started the last couple months. Nothing makes it better or worse. Deny nausea vomiting or diaphoresis. No events over telemetry. Objective Vitals Vital Signs Date Time Temp Pulse Resp B/P Pulse Ox O2 Delivery O2 Flow Rate FiO2 09/24/16 08:17 97.9 86 20 163/80 96 09/24/16 05:00 80 16 112/70 98 Room Air 09/24/16 04:30 81 16 115/78 96 Room Air 09/24/16 04:10 77 122/59 09/24/16 03:30 88 16 115/66 97 Room Air 09/24/16 02:17 80 18 86/53 99 Room Air 09/24/16 01:42 93 18 84/47 99 Room Air 09/24/16 01:42 99 09/24/16 01:32 98.7 100 16 74/39 95 Room Air I/O 09/23/16 09/23/16 09/23/16 09/24/16 09/24/16 09/24/16 07:00 15:00 23:00 07:00 15:00 23:00 Intake Total 3000 ml Balance 3000 ml Intake IV Total 3000 ml Result Diagram: 09/24/1621409/24/16214 Objective Remarks GENERAL: in NAD SKIN: Warm and dry. HEAD: Normocephalic. EYES: No scleral icterus. No injection or drainage. NECK: Supple, trachea midline. No JVD or lymphadenopathy. CARDIOVASCULAR: Regular rate and rhythm without murmurs, gallops, or rubs. RESPIRATORY: Breath sounds equal bilaterally. No accessory muscle use. GASTROINTESTINAL: Abdomen soft, non-tender, nondistended. Medications and IVs Current Medications Sodium Chloride 2 ml 2 ml UNSCH PRN IVF FLUSH AFTER USING IV ACCESS; Start at 02:15 Sodium Chloride 1,000 ml @ 999 mls/hr BOLUS ONCE IV Last administered on 09/24t 01:50; Start 09/24/16 at 02:15; Stop 09/24/16 at 03:15; Status DC Sodium Chloride 1,000 ml @ 999 mls/hr BOLUS ONCE IV Last administered on 09/24 03:23; Start 09/24/16 at 03:15; Stop 09/24/16 at 04:15; Status DC Sodium Chloride (NS 1000 ml Inj) 1,000 ml @ 999 mls/hr BOLUS ONCE IV Last administered on 09/24/16 03:23; Start 09/24/16 at 03:15; Stop 09/24/16 at 04:15 ; Status DC Folic Acid (Folate) 1 mg DAILY PO ; Start 09/24/16 at 09:00; Stop 09/29/16 at 08 :59 Thiamine HCl (Vitamin B1) 100 mg DAILY PO ; Start 09/24/16 at 09:00 Multivitamins/ Minerals Therapeutic (Theragran M Tab) 1 tab DAILY PO ; Start at 09:00; Stop 09/29/16 at 08:59 Flumazenil (Romazicon Inj) 0.2 mg Q1M PRN IV PUSH SEE LABEL COMMENTS; Start at 04:15 Lorazepam (Ativan) 1 mg Q4H PRN PO CIWA 8 - 10; Start 09/24/16 at 04:15 Lorazepam (Ativan Inj) 1 mg Q4H PRN IV PUSH CIWA 8 - 10; Start 09/24/16 at 04: 15 Lorazepam (Ativan) 2 mg Q2H PRN PO CIWA 11-14; Start 09/24/16 at 04:15 Lorazepam (Ativan Inj) 2 mg Q2H PRN IV PUSH CIWA 11-14; Start 09/24/16 at 04:15 Lorazepam (Ativan Inj) 2 mg Q1H PRN IV PUSH CIWA 15-20; Start 09/24/16 at 04:15 Lorazepam (Ativan Inj) 2 mg Q15M PRN IV PUSH CIWA > 20; Start 09/24/16 at 04:15 Haloperidol Lactate 2 mg 2 mg Q15M PRN IM SEE LABEL COMMENTS; Start 09/24/16 at 04:15 Sodium Chloride (NS 1000 ml Inj) 1,000 ml @ 100 mls/hr Q10H IV Last administered on 09/24/16 06:31; Start 09/24/16 at 04:15 Sodium Chloride (NS Flush) 2 ml UNSCH PRN IV FLUSH FLUSH AFTER USING IV ACCESS ; Start 09/24/16 at 04:15 Sodium Chloride (NS Flush) 2 ml BID IV FLUSH ; Start 09/24/16 at 09:00 Ondansetron HCl (Zofran Inj) 4 mg Q6H PRN IVP NAUSEA OR VOMITING; Start at 04:15 Acetaminophen (Tylenol) 650 mg Q6H PRN PO FEVER/PAIN SCALE 1 TO 2; Start at 04:15 Senna/Docusate Sodium (Jackeline-Colace) 1 tab BID PO ; Start 09/24/16 at 09:00 Magnesium Hydroxide (Milk Of Magnesia Liq) 30 ml Q12H PRN PO MILD - MODERATE CONSTIPATION; Start 09/24/16 at 04:15 Sennosides (Senokot) 17.2 mg Q12H PRN PO MODERATE - SEVERE CONSTIPATION; Start 09/24/16 at 04:15 Bisacodyl (Dulcolax Supp) 10 mg DAILY PRN RECTAL SEVERE CONSITIPATION; Start at 04:15 Lactulose (Lactulose Liq) 30 ml DAILY PRN PO SEVERE CONSITIPATION; Start at 04:15 Aspirin (Ecotrin Ec) 81 mg DAILY PO ; Start 09/24/16 at 09:00 Atorvastatin Calcium (Lipitor) 80 mg HS PO ; Start 09/24/16 at 21:00 Carbamazepine (TEGretol) 200 mg BID PO ; Start 09/24/16 at 09:00 Clopidogrel Bisulfate (Plavix) 75 mg DAILY PO ; Start 09/24/16 at 09:00 Benztropine Mesylate (Cogentin) 1 mg DAILY PO health; Start 09/24/16 at 09:00 A/P Problem List: (1) Chest pain ICD Code: R07.9 Status: Acute (2) Hypotension ICD Code: I95.9 Status: Acute (3) Dehydration ICD Code: E86.0 Status: Acute (4) Lactic acidosis ICD Code: E87.2 Status: Acute (5) Alcohol abuse ICD Code: F10.10 Status: Acute Assessment and Plan Atypical Chest Pain: - h/o CAD w/ previous stents, however recent admit to [facility] 09/21/16, s/p Nuclear Stress 09/22/16 negative for ischemia, normal LV function. Cardiac Cath 07/20/[address] Nichols w/ patent stents to RCA. -Chest pain very unlikely cardiac in nature especially with recent cardiac studies that have been negative. Chest pain most likely due to alcoholism. -Patient is on aspirin. Beta raul was held secondary to hypotension induced by anti-hypertensive medication. Will restart beta raul at a lower dose. Hypotension: BP 70's upon EMS arrival, s/p 2L IVF in ER w/ persistent hypotension, BP 80-90's, now BP 122/58 after 3L IVF. -Most likely due to antihypertensive medication and dehydration from alcoholism. -Blood pressure has improved drastically. We'll restart beta raul and lisinopril at a lower dose. Lactic Acidosis: Lactate 2.7, s/p IVF in ER, will continue w/ IVF, check repeat Lactate. No evidence of infection. CXR w/ no acute findings, images reviewed by me -Most likely combination of dehydration and alcoholism. Alcohol Abuse: - w/ Acute Alcohol Intoxication. Alcohol 171, CIWA, Seizure Precautions, MVT/ Thiamine/Folate replacement. -Patient is alert and medically stable at the moment. -Education given. Tobacco Abuse: - Pt counselled. Ativan prn if needed. No NicoDerm to avoid vasoconstriction. DVT Prophylaxis: SCD/Teds. Discharge Planning If patient continues to do well and cardiac enzymes are negative patient can be discharged later today. Problem Qualifiers (1) Chest pain: Qualified Code: R07.9 - Chest pain, unspecified type (2) Hypotension: Qualified Code: I95.9 - Hypotension, unspecified hypotension type Deysi Galvez MD Sep 24, 2016 09:04
[2016-09-24] MEDS ORDERED: LISINOPRIL 5 MG TAB PO SCH (09:15)
[2016-09-24] MEDS ORDERED: METOPROLOL TARTRATE 25 MG TAB PO SCH (09:15)
--- NOTE | 2016-09-24 11:55 | EKG ---
Date Performed: 09/24/2016 Time Performed: 01:42:52 PTAGE: 55 years EKG: Sinus rhythm MARKED LEFT AXIS DEVIATION RIGHT BUNDLE BRANCH BLOCK Since previous tracing, no significant change n oted ABNORMAL ECG PREVIOUS TRACING : 07/19/2016 23.45 DOCTOR: Moris Stoner Interpretating Date/Time 09/24/2016 11:54:41
[2016-09-24] MEDS ORDERED: LISI10TA3 PO (17:26)
[2016-09-24] MEDS ORDERED: METO25TA3 PO (17:26)
--- NOTE | 2016-09-24 17:26 | HHI.DCPOC ---
Discharge Care Plan Diagnosis: (1) Alcohol intoxication (2) Hypotension (3) Chest pain Goals to Promote Your Health * To prevent worsening of your condition and complications * To maintain your health at the optimal level Directions to Meet Your Goals Take your medications as prescribed Follow your dietary instruction Follow activity as directed Keep your appointments as scheduled Take your immunizations and boosters as scheduled If your symptoms worsen call your PCP, if no PCP go to Urgent Care Center or Emergency Room Smoking is Dangerous to Your Health. Avoid second hand smoke Call the 24-hour hour crisis hotline for domestic abuse at Deysi Galvez MD Sep 24, 2016 17:26
--- NOTE | 2016-09-24 17:26 | HHI.DS ---
Discharge Summary Admission Date Sep 24, 2016 at 04:12 Admitting Diagnosis chest pain with hypotension, lactic acidosis, alcohol intoxication (1) Chest pain ICD Code: R07.9 (2) Hypotension ICD Code: I95.9 (3) Dehydration ICD Code: E86.0 (4) Lactic acidosis ICD Code: E87.2 (5) Alcohol abuse ICD Code: F10.10 Brief History - From Admission This is a 55-year-old Homeless male with a PMH of Bipolar Disorder, HTN, Alcohol Abuse and Tobacco Abuse who was brought to the ER by EMS secondary to complaints of chest pain starting earlier this evening. States he was discharged from [facility] yesterday for similar symptoms. Upon EMS arrival, patient noted to be hypotensive with BP 70's systolic, s/p IVF en route. On arrival, BP 84/47, HR 93 s/p 2L IVF in ER w/ persistent hypotension, BP 80-90's , received 3rd liter IVF now w/ improvement, BP 122/59, HR 77. CBC essentially unremarkable except for mild thrombocytopenia. Chemistry unremarkable except for GFR 86. Lactic Acid 2.7. Troponin negative. Alcohol 191. CXR with no acute findings. Records obtained from [facility], pt admitted 09/21/16 for c/o chest pain, s/p Stress Test 09/22/16 negative for ischemia, normal LV function 64 %. Per records, pt also underwent Cardiac Cath 07/20/[address] Nichols found to have patent stents to RCA and normal LV function. CBC/BMP: 09/24/16 0215 09/24/16 0215 Significant Findings Laboratory Tests Test 09/24/16 09/24/16 02:15 10:40 Red Blood Count 3.65 MIL/MM3 (4.50-5.90) Hemoglobin 11.2 GM/DL (13.0-17.0) Hematocrit 33.5 % (39.0-51.0) Platelet Count 149 TH/MM3 (150-450) Eosinophils (%) (Auto) 5.5 % (0.0-4.0) Prothrombin Time 11.9 SEC (9.8-11.6) Estimat Glomerular Filtration 86 ML/MIN (>89) Rate Random Glucose 155 MG/DL (74-106) Lactic Acid Level 2.7 mmol/L (0.4-2.0) Calcium Level 8.2 MG/DL (8.5-10.1) Troponin I LESS THAN 0.02 LESS THAN 0.02 NG/ML NG/ML (0.02-0.05) (0.02-0.05) Albumin 3.1 GM/DL (3.4-5.0) Carbamazepine (Tegretol) Level LESS THAN 0.5 MCG/ML (4.0-12.0) Ethyl Alcohol Level 191 MG/DL (0-5) PE at Discharge GENERAL: in NAD SKIN: Warm and dry. HEAD: Normocephalic. EYES: No scleral icterus. No injection or drainage. NECK: Supple, trachea midline. No JVD or lymphadenopathy. CARDIOVASCULAR: Regular rate and rhythm without murmurs, gallops, or rubs. RESPIRATORY: Breath sounds equal bilaterally. No accessory muscle use. GASTROINTESTINAL: Abdomen soft, non-tender, nondistended. Deysi Galvez MD Sep 24, 2016 17:26
[2016-09-24] MEDS ORDERED: ATORVASTATIN 80 MG TAB PO SCH (21:00)
--- NOTE | 2016-09-26 08:36 | EKG ---
Date Performed: 09/24/2016 Time Performed: 16:07:50 PTAGE: 55 years EKG: Sinus rhythm INFERIOR MYOCARDIAL INFARCTION ABNORMAL ECG INTERPRETATION BASED ON A DEFAULT AGE OF 40 YEARS PREVIOUS TRACING : 09/24/2016 10.25 DOCTOR: Abi Ricks Interpretating Date/Time 09/26/2016 08:34:44
--- NOTE | 2016-09-26 08:45 | EKG ---
Date Performed: 09/24/2016 Time Performed: 10:25:38 PTAGE: 55 years EKG: Sinus rhythm POSSIBLE RIGHT VENTRICULAR CONDUCTION DELAY INFERIOR MYOCARDIAL INFARCTION ABNORMAL ECG INTERPRETATI ON BASED ON A DEFAULT AGE OF 40 YEARS PREVIOUS TRACING : 09/24/2016 01.42 DOCTOR: Abi Ricks Interpretating Date/Time 09/26/2016 08:41:48
== END 2016-09-24 18:46 | disposition home or self-care (01) ==
LOC: NEPC 01:32 → NEDA 04:12 → NEPHCDU 06:33
PROVIDERS: ADMIT Family Medicine; ATTEND Family Medicine
DX: R07.89 Other chest pain (principal); E87.2 Acidosis; I95.9 Hypotension, unspecified; E86.0 Dehydration; F10.229 Alcohol dependence with intoxication, unspecified; Y90.6 Blood alcohol level of 120-199 mg/100 ml; F17.200 Nicotine dependence, unspecified, uncomplicated; Z79.82 Long term (current) use of aspirin; Z79.02 Long term (current) use of antithrombotics/antiplatelets
CPT/HCPCS: 71010; 80053; 80156; 80307; 82550; 82552; 82948; 83605; 83690; 83735; 84484; 85025; 85610; 85730; 87040; 93005; 96360; 96361; 99285; G0378; J7030

== ENCOUNTER 2016-10-30 22:06 | Emergency (ER) | payer SELFPAY ==
[~2016-10-30 22:06] MED LIST changes: -CELE20TA PO; -LEXA20TA PO; -LISI-515 PO; +LISI10TA3 PO; -METO-309 PO; +METO25TA3 PO; -RISP1 PO; -RISP3TAB2 PO
[2016-10-30 22:08] VITALS: BP 127/69; PULSE 101; RESP 16; TEMP 98.8; O2SAT 96
[2016-10-31] MEDS ORDERED: RISP2TAB37 PO (00:56)
[2016-10-31] MEDS ORDERED: CELE10TA PO (00:56)
[2016-10-31 00:59] LABS: AUTOMATED NEUTROPHIL # 8.9 TH/MM3 (1.8-7.7); BASOPHIL # 0.1 TH/MM3 (0-0.2); BASOPHIL % 0.7 % (0.0-2.0); EOSINOPHIL # 0.4 TH/MM3 (0-0.4); EOSINOPHIL % 3.3 % (0.0-4.0); HEMATOCRIT 39.6 % (39.0-51.0); HEMO FLAGS DIFF FINAL; LYMPH % 19.3 % (9.0-44.0); LYMPHOCYTE # 2.5 TH/MM3 (1.0-4.8); MEAN CELL VOLUME 91.2 FL (80.0-100.0); MEAN CORPUSCULAR HEMOGLOBIN 29.4 PG (27.0-34.0); MEAN CORPUSCULAR HGB CONC 32.3 % (32.0-36.0); MONO % 6.9 % (0.0-8.0); NEUT % 69.8 % (16.0-70.0); PLATELET COUNT 198 TH/MM3 (150-450); RED BLOOD COUNT 4.34 MIL/MM3 (4.50-5.90); RED CELL DISTRIBUTION WIDTH 16.4 % (11.6-17.2); WHITE BLOOD COUNT 12.7 TH/MM3 (4.0-11.0)
[2016-10-31 01:05] LABS: AMPHETAMINE, URINE NEG (NEG); BARBITURATES, URINE NEG (NEG); COCAINE, URINE NEG (NEG)
[2016-10-31 01:14] LABS: ANION GAP 9 MEQ/L (5-15)
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
[2016-10-31 01:27] LABS: ALKALINE PHOSPHATASE 76 U/L (45-117); ALT (GPT) 20 U/L (12-78); AST (GOT) 18 U/L (15-37); BICARBONATE 25.7 MEQ/L (21.0-32.0); BLOOD UREA NITROGEN 10 MG/DL (7-18); CHLORIDE 110 MEQ/L (98-107); GLOMERULAR FILTRATION RATE 94 ML/MIN (>89); POTASSIUM 3.4 MEQ/L (3.5-5.1); SODIUM (NA) 145 MEQ/L (136-145); TOTAL BILIRUBIN ADULT 0.3 MG/DL (0.2-1.0)
[2016-10-31 01:28] LABS: ACETAMINOPHEN LESS THAN 2.0 MCG/ML (10.0-30.0)
[2016-10-31 06:08] VITALS: BP 132/89; PULSE 84; RESP 16; O2SAT 96
[2016-10-31 11:48] VITALS: BP 149/91; PULSE 79; RESP 18; O2SAT 97
== END 2016-10-31 13:45 | disposition home or self-care (01) ==
LOC: NEPD 22:06 → NEPJ 10-31 13:45
DX: F10.10 Alcohol abuse, uncomplicated (principal); I10 Essential (primary) hypertension; Y90.5 Blood alcohol level of 100-119 mg/100 ml; Z76.5 Malingerer [conscious simulation]; Z72.0 Tobacco use; Z79.899 Other long term (current) drug therapy
CPT/HCPCS: 80053; 80307; 85025; 99284